=== PATIENT | female | born 2000 | race Caucasian/White ===

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

== ENCOUNTER 2022-12-23 22:53 | Emergency (ER) | payer OTHER, SELFPAY ==
[2022-12-23 23:01] VITALS: BP 132/92; PULSE 109; RESP 18; TEMP -17.7; TEMP 0; O2SAT 98; BMI 23.8
--- NOTE | 2022-12-23 23:12 | ED.ALLEREA ---
HPI - Allergic Reaction General Chief complaint: Allergic Reaction Stated complaint: Allergic reaction Time Seen by Provider: 12/23/22 23:05 Source: patient Mode of arrival: ambulatory Limitations: no limitations History of Present Illness HPI narrative: Patient comes to the emergency room complaining of an allergic reaction to seafood. Patient states she has known allergy to seafood. Unclear why patient consumed a seafood boil 3 hours ago. Approximately an hour after eating seafood, patient started feeling that her throat was itchy, closing up, her lips started swelling up. Patient took 2 tablets of Benadryl hoping that the reaction would stop. However, the Benadryl did not work. Patient now complaining that her lips are getting bigger and feels that her throat is more tight than before Related Data Allergies Allergy/AdvReac Type Severity Reaction Status Date / Time peanut Allergy Anaphylaxis Verified 12/23/22 23:00 seafood Allergy Angioedema Verified 12/23/22 23:00 Review of Systems Review of Systems: Constitutional : No Weight loss, No Fever, No Chills, No Night Sweats, No Fatigue, No Malaise ENT/Mouth : No Hearing loss, No Ear Pain, No Nasal Congestion, No Sinus Pain, complaining of upper and lower lip swelling, complaining of sensation that her throat is closing Cardiovascular : No Chest Pain, No SOB, No Dyspnea on Exertion, No Orthopnea, No Edema, No Palpitations Respiratory : No Cough, No Sputum, No Wheezing, No Smoke Exposure, No Dyspnea Gastrointestinal : No Nausea, No Vomiting, No Diarrhea, No Constipation, No abdominal Pain, No Hematochezia, No Melena Genitourinary : no irregular bleeding, No Dysuria, No Urinary Frequency, No Hematuria, No Urinary Incontinence, No Urgency, No Flank Pain, No Urinary Flow Changes, No Hesitancy Musculoskeletal : No joint pain, No Myalgias, No Joint Swelling Skin : No Skin Lesions, No rash Neuro : No Weakness, No Numbness, No Paresthesias, No Loss of Consciousness, No Dizziness, No Headache Psych : No Anxiety/Panic, No Depression, No SI/HI/AH/VH, No Social Issues, Heme/Lymph: No Bruising, No Bleeding,No Lymphadenopathy Endocrine : No Polyuria, No Polydipsia, No Temperature Intolerance [facility] Social History Social History Alcohol intake: current Alcohol intake frequency: holidays/special occasions only Alcohol type: hard liquor Smoked in Last 30 Days: No Use of substances other than those prescribed or required for medical reasons: No Advance Directives: No Physical Exam ED Vital Signs: Vital Signs - 24 hr 12/23/22 23:01 12/23/22 23:15 12/24/22 02:44 Temperature 0 F L 98.0 F Pulse Rate 109 H 108 H 78 Respiratory Rate 18 16 Blood Pressure 132/92 H 132/92 H 118/65 Pulse Oximetry 98 98 Oxygen Delivery Method Room Air Room Air BMI result Body Mass Index 23.8 Const Other: Appearance: Alert. Oriented X3. No acute distress. Eyes: Pupils equal, round and reactive to light. ENT: Uvula and tongue within normal limits, upper and lower lips swollen, hoarse voice Neck: Normal inspection. Neck supple. No lymph nodes noted. No crepitus CVS: Normal heart rate and rhythm. Pulses normal. Normal S1 and S2 Respiratory: No respiratory distress. Breath sounds normal. No Wheezing. No rales Abdomen: Soft and nontender. No rigidity. No distention. Skin: Skin warm and dry. Normal skin color. Normal skin turgor. Extremities: No lower extremity edema. No Lacerations. No Rash Neuro: Oriented X 3. No motor deficit. No sensory deficit. Moving all extremities. No slurred speech. CN 2 through 12 grossly intact Psych: calm, cooperative, normal affect Course Course Course Narrative: -patient was giving IM epinephrine, IV Solu-Medrol, Pepcid and Benadryl and IV fluids. Medications Administered Discontinued Medications Generic Name Dose Route Start Last Admin Trade Name Ivanq PRN Reason Stop Dose Admin Diphenhydramine HCl 50 mg 12/23/22 23:11 12/23/22 23:31 Diphenhydramine Hcl 50 Mg/Ml Vial IVPUSH 12/23/22 23:12 50 mg ONCE ONE Administration Diphenhydramine HCl 25 mg 12/24/22 02:27 12/24/22 02:38 Diphenhydramine Hcl 50 Mg/Ml Vial IVPUSH 12/24/22 02:28 25 mg ONCE ONE Administration Epinephrine 0.3 mg 12/23/22 23:11 12/23/22 23:15 Epinephrine 1 Mg/Ml Vial IM 12/23/22 23:12 0.3 mg STAT STA Administration Famotidine 20 mg 12/23/22 23:11 12/23/22 23:31 Famotidine/Pf 20 Mg/2 Ml Vial IVPUSH 12/23/22 23:12 20 mg ONCE ONE Administration Famotidine 20 mg 12/24/22 02:27 12/24/22 02:37 Famotidine/Pf 20 Mg/2 Ml Vial IVPUSH 12/24/22 02:28 20 mg ONCE ONE Administration Methylprednisolone Sodium Succinate 125 mg 12/23/22 23:11 12/23/22 23:31 Methylprednisolone Sod Succ 125 Mg/2 Ml Vial IVPUSH 12/23/22 23:12 125 mg ONCE ONE Administration Methylprednisolone Sodium Succinate 125 mg 12/24/22 02:27 12/24/22 02:38 Methylprednisolone Sod Succ 125 Mg/2 Ml Vial IVPUSH 12/24/22 02:28 125 mg ONCE ONE Administration Medical Decision Making Medical Decision Making MDM Narrative: -swelling in the lips decreased significantly, patient asymptomatic. -on physical exam prior to discharge, no wheezing, no angioedema present. Patient feels back to baseline -patient states that she has epinephrine pens at home and does not require prescription Differential Diagnosis Differential Diagnoses: The differential diagnosis associated with the presentation includes (Allergic reaction, familial angioedema) Critical Care Time Critical Care Time Critical Care Time: Yes Total Critical Care Time: 60 Attestation: I have personally provided critical care time. Time includes review of lab data, radiology results, discussion with consultants, and monitoring for potential decompensation. Intervention performed as documented. Discharge Plan Discharge Clinical Impression: Angioedema Patient Disposition: Home, Self-Care Instructions: Angioedema (ED) Additional Instructions: Please follow-up with your primary care physician tomorrow. If you have any worsening or new symptoms, please return to the emergency room or call 911
[2022-12-23 23:15] VITALS: BP 132/92; PULSE 108
[2022-12-23] MEDS: EPINEPHrine 1 MG/ML VIAL 0.3 MG IM (23:15)
--- NOTE | 2022-12-23 23:17 | PC.NURSE ---
sanders to bedside for primary eval while RN finishing up triage. Pt medicated per MD orders with IM epi. fiber technician provided Senia RN report on the patient. pt remains awake, alert, skin pwd, swelling noted to her eyelids and lips without visualized airway involvement. Pt has call floyd in reach and remains connected to monitor for continued obs.
[2022-12-23] MEDS: diphenhydrAMINE HCL 50 MG/ML VIAL IVPUSH (23:31)
[2022-12-23] MEDS: Famotidine/PF 20 MG/2 ML VIAL IVPUSH (23:31)
[2022-12-23] MEDS: methylPREDNISolone Sod Succ 125 MG/2 ML VIAL IVPUSH (23:31)
--- NOTE | 2022-12-23 23:36 | PC.NURSE ---
Patient is alert and oriented x3, VSS. Patient medicated per MAR. Patient continues to complain of mild difficulty swallowing, lip edema noted, no rash, no s/s of respiratory distress noted. Call floyd within patient's reach, patient's boyfriend at bedside.
[2022-12-24] MEDS: Famotidine/PF 20 MG/2 ML VIAL IVPUSH (02:37)
[2022-12-24] MEDS: diphenhydrAMINE HCL 50 MG/ML VIAL 25 MG IVPUSH (02:38)
[2022-12-24] MEDS: methylPREDNISolone Sod Succ 125 MG/2 ML VIAL IVPUSH (02:38)
--- NOTE | 2022-12-24 02:41 | PC.NURSE ---
Patient medicated per DEC. Patient reports achy discomfort in her throat resolved, edema in upper and lower lip continues to improve and almost completely resolved. VSS.
[2022-12-24 02:44] VITALS: BP 118/65; PULSE 78; RESP 16; TEMP 36.7; O2SAT 98
== END 2022-12-24 03:13 | disposition home or self-care (01) ==
PROVIDERS: Emergency Provider Emergency Medicine; PCP Pediatrics
DX: T78.1XXA Other adverse food reactions, not elsewhere classified, initial encounter (principal); T78.3XXA Angioneurotic edema, initial encounter; X58.XXXA Exposure to other specified factors, initial encounter
CPT/HCPCS: 96372; 96374; 96375; 96376; 99284; J0171; J1200; J2930

== ENCOUNTER 2023-06-02 20:34 | Emergency (ER) | payer OTHER, SELFPAY ==
--- NOTE | ~2023-06-02 | US_ITS ---
EXAMINATION: ULTRASOUND PELVIC, COMPLETE CLINICAL INFORMATION: . Pain. COMPARISON: None. TECHNIQUE: Transvaginal: Used to better visualize pelvic structures Transabdominal: Not adequate for visualization Spectral Doppler and color Doppler exam was utilized. LMP: 04/23/2023 gestational age by LMP is 5 weeks 5 days. FINDINGS: UTERUS: Single intrauterine gestational sac. There is a yolk sac and pole present. heart rate 116 bpm. [place]-rump length 0.25 cm. Gestational age is 5 weeks 6 days. ADELE 01/27/2024 ADNEXA: Ovarian vascularity:Doppler demonstrates both arterial and venous vascular flow in the right and left ovary. No evidence of ovarian torsion. Right Ovary: Corpus luteum cyst in the right ovary measuring 2.1 cm. The right ovary overall measures 5.1 x 2.4 x 2.5 cm. Left Ovary: Unremarkable. Left ovary measures 2.8 x 2.4 x 2.8 cm. Cul-de-sac: No Fluid US/US OB pelvic and transvaginal IMPRESSION: Single intrauterine gestation. Estimated gestational age by this exam is 5 weeks 6 days. ADELE 01/27/2024.
[2023-06-02 20:48] VITALS: BP 134/84; PULSE 94; RESP 18; TEMP 37.8; O2SAT 100; BMI 25.2
--- NOTE | 2023-06-02 20:49 | ED_ITS ---
HPI - Nausea/Vomiting/Diarrhea General Chief complaint: Abdominal Pain Stated complaint: abd pain/n/v/hot flashes Time Seen by Provider: 06/02/23 22:18 Source: patient Mode of arrival: ambulatory Limitations: no limitations History of Present Illness HPI Narrative: 22 yo female LMP 04/23 states it was normal for 4 days diffuse abdominal pain with n/v for 3 days no fevers no diarrhea - no urinary symptoms, new discharge or bleeding. The patient did not take a test. She has never been before. MD elicited complaint: nausea, vomiting and abdominal pain Onset (ago): day(s) (4) Description of vomiting: watery Associated nausea: Yes Associated abdominal pain: Yes Location of pain: diffuse Radiation: diffuse Pain consistency: intermittent Severity: moderate Quality: aching Exacerbating factors: eating Relieving factors: none Context: other (late on menses) Associated symptoms: loss of appetite, malaise and nausea/vomiting Related Data Previous Rx's Medication Instructions Recorded metoclopramide HCl 10 mg tablet 10 mg PO Q6H PRN nausea and 06/03/23 (Reglan) vomiting #20 tabs Allergies Allergy/AdvReac Type Severity Reaction Status Date / Time peanut Allergy Anaphylaxis Verified 06/02/23 20:53 seafood Allergy Angioedema Verified 06/02/23 20:53 Review of Systems Review of Systems: Constitutional : No Weight loss, No Fever, No Chills ENT/Mouth : No sore throat, No Rhinorrhea Eyes: No Swelling, No Redness Cardiovascular : No Chest Pain, No SOB, No Edema Respiratory : No Cough, No Sputum, No Wheezing Gastrointestinal : Positive Nausea, Positive Vomiting, no Diarrhea, positive abdominal Pain, No Hematochezia, No Melena Genitourinary : No Dysuria, No Urinary Frequency, No Hematuria, No Urgency Musculoskeletal : No joint pain, No Myalgias, No Joint Swelling Skin : No Skin Lesions, No rash Neuro : No Weakness, No Numbness, No Dizziness, No Headache Psych : No Anxiety/Panic, No Depression All other systems reviewed and are negative. Gastrointestinal: Gastrointestinal: Reports nausea PMFSH Past Medical History Attestation statement: The following information was validated with the patient. Medical History No pertinent past medical history Surgical History Hx of appendectomy Social History Social History (Updated 06/02/23 @ 23:19 by Leydi Anderson DO) Alcohol intake: current Alcohol intake frequency: holidays/special occasions only Alcohol type: hard liquor Patient Tobacco Use Status: Never used Tobacco Advance Directives: No Advance Directives Information Provided: No Physical Exam Vital Signs: Vital Signs: Last Vital Signs Temp 98.6 F 06/03/23 01:51 Pulse 92 06/03/23 01:51 Resp 16 06/03/23 01:51 BP 115/68 06/03/23 01:51 Pulse Ox 98 06/03/23 01:51 O2 Del Method Room Air 06/03/23 01:51 BMI result Body Mass Index 25.2 Appearance: Alert. Oriented X3. No acute distress. Eyes: Pupils equal, round and reactive to light. ENT: Pharynx normal. Neck: Normal inspection. Neck supple. CVS: Normal heart rate and rhythm. Pulses normal. Respiratory: No respiratory distress. Breath sounds normal. Abdomen: Soft and mild lower abdominal ttp no rebound Skin: Skin warm and dry. Normal skin color. Normal skin turgor. Extremities: No lower extremity edema. No calf ttp Neuro: Oriented X 3. No motor deficit. No sensory deficit. Course Course Course Narrative: This is an RME: Additional HPI, ROS, PE not included below will be deferred to primary provider. This is a 34-female presenting to the ER with complaints of abdominal pain, nausea, vomiting, and hot flashes. Last menstrual cycle was April 23, reports that she could be . Unable to tolerate PO. Vital signs stable. Abdomen is soft. Plan: Labs, UA, upreg Reevaluation(s) Reevaluation #1: signed out pending UA Medications Administered Discontinued Medications Generic Name Dose Route Start Last Admin Trade Name Freq PRN Reason Stop Dose Admin Diphenhydramine HCl 25 mg 06/03/23 01:18 06/03/23 01:46 Diphenhydramine Hcl 50 Mg/Ml Vial IVPUSH 06/03/23 01:19 25 mg ONCE ONE Administration Sodium Chloride 1,000 mls @ 999 mls/hr 06/02/23 23:15 06/03/23 00:57 Ns IV 06/03/23 00:15 999 mls/hr .Q1H1M KVNG Administration Metoclopramide HCl 10 mg 06/03/23 01:18 06/03/23 01:46 Metoclopramide Hcl 10 Mg/2 Ml Vial IVPUSH 06/03/23 01:19 10 mg ONCE ONE Administration Ondansetron HCl 4 mg 06/02/23 23:07 06/03/23 00:56 Ondansetron Hcl 4 Mg/2 Ml Vial IVPUSH 06/02/23 23:08 4 mg ONCE ONE Administration Medical Decision Making Medical Decision Making [facility] Narrative: 22 yo female G1 LMP 04/23 here with c/o abdominal pain and n/v for 4 days unaware she was until this visit at this time will need basic labs, quant she has no bleeding or new discharge she will be given IVF zofran and US to assess for ectopic I have also ordered UA to assess for UTI. She has no RUQ pain to suggest cholecystitis she is also s/p appendectomy int he past. Differential Diagnosis Differential Diagnoses: The differential diagnosis associated with the presentation includes UTI, dehydration, ectopic, ovarian cyst, round ligament pain Admission/Observation Consideration of admission/observation: Escalation of care including admission/observation considered US normal can tolerate PO Lab Data [facility] Lab Attestation statement: I reviewed the patient's lab results. 06/02/23 21:10 06/02/23 21:10 Labs: Lab Results 06/02/23 06/02/23 06/03/23 Range/Units 21:10 21:10 01:52 WBC 5.1 (4.8-10.8) X10*3/uL RBC 4.10 L (4.20-5.50) X10*6/uL Hgb 12.7 (12.0-16.0) g/dl Hct 37.1 (37.0-47.0) % MCV 90.5 (80.0-98.0) fL MCH 31.0 (27.0-33.0) pg MCHC 34.2 (31.0-35.0) g/dl RDW 12.7 (11.0-16.0) % Plt Count 323 (160-400) X10*3/uL MPV 9.9 (9.4-12.3) fL Immature Gran % (Auto) 0.4 (0.0-0.4) % Neut % (Auto) 61.2 (45-73) % Lymph % (Auto) 27.3 (20-40) % [place] % (Auto) 8.5 (2-11) % Eos % (Auto) 1.8 (0-4) % Baso % (Auto) 0.8 (0-2) % Lymph # (Auto) 1.4 (1.2-4.9) X10*3/uL [place] # (Auto) 0.4 (0.1-1.2) X10*3/uL Eos # (Auto) 0.1 (0.0-0.4) X10*3/uL Baso # (Auto) 0.0 (0.0-0.2) X10*3/uL Abs Immat Gran (auto) 0.02 (0.00-0.03) X10*3/uL Absolute Neuts (auto) 3.1 (2.0-8.3) x10*3/uL Absolute Nucleated RBC 0.000 (0.0-0.012) X10*3/uL Nucleated RBC % (auto) 0.0 (0.0-0.2) /100WBC Sodium 136 (135-145) mmol/L Potassium 4.0 (3.3-5.1) mmol/L Chloride 103 (96-108) mmol/L Carbon Dioxide 24 (22-29) mmol/L Anion Gap 13 (12-20) BUN 8 L (9-16) mg/dL Creatinine 0.64 (0.5-1.4) mg/dL Estim Creat Clear Calc 121.7 Estimated GFR > 60 Random Glucose 83 (60-115) mg/dL Calcium 9.6 (8.4-10.2) mg/dL Magnesium 1.8 (1.6-2.6) mg/dL Total Bilirubin 0.7 (0.0-1.0) mg/dL Direct Bilirubin 0.2 (0.0-0.5) mg/dL AST 14 (5-31) U/L ALT 6 (0-31) U/L Alkaline Phosphatase 68 (39-117) U/L Total Protein 7.5 (6.5-8.0) g/dL Albumin 4.3 (3.5-5.0) g/dL Lipase 13 (8-78) U/L Beta HCG, Quant 12802 mIU/mL Urine Color Yellow Urine Appearance Clear Urine pH 6.5 (5.0-9.0) Ur Specific [place] 1.025 (1.005-1.025) Urine Protein Negative (Neg-Trace) mg/dL Urine Glucose (UA) Negative (Negative) mg/dL Urine Ketones >=160 (Negative) mg/dL Urine Blood Negative (Negative) Urine Nitrite Negative (Negative) Ur Leukocyte Esterase Negative (Negative) Urine Test (NEGATIVE) 06/03/23 Range/Units 01:52 WBC (4.8-10.8) X10*3/uL RBC (4.20-5.50) X10*6/uL Hgb (12.0-16.0) g/dl Hct (37.0-47.0) % MCV (80.0-98.0) fL MCH (27.0-33.0) pg MCHC (31.0-35.0) g/dl RDW (11.0-16.0) % Plt Count (160-400) X10*3/uL MPV (9.4-12.3) fL Immature Gran % (Auto) (0.0-0.4) % Neut % (Auto) (45-73) % Lymph % (Auto) (20-40) % [place] % (Auto) (2-11) % Eos % (Auto) (0-4) % Baso % (Auto) (0-2) % Lymph # (Auto) (1.2-4.9) X10*3/uL [place] # (Auto) (0.1-1.2) X10*3/uL Eos # (Auto) (0.0-0.4) X10*3/uL Baso # (Auto) (0.0-0.2) X10*3/uL Abs Immat Gran (auto) (0.00-0.03) X10*3/uL Absolute Neuts (auto) (2.0-8.3) x10*3/uL Absolute Nucleated RBC (0.0-0.012) X10*3/uL Nucleated RBC % (auto) (0.0-0.2) /100WBC Sodium (135-145) mmol/L Potassium (3.3-5.1) mmol/L Chloride (96-108) mmol/L Carbon Dioxide (22-29) mmol/L Anion Gap (12-20) BUN (9-16) mg/dL Creatinine (0.5-1.4) mg/dL Estim Creat Clear Calc Estimated GFR Random Glucose (60-115) mg/dL Calcium (8.4-10.2) mg/dL Magnesium (1.6-2.6) mg/dL Total Bilirubin (0.0-1.0) mg/dL Direct Bilirubin (0.0-0.5) mg/dL AST (5-31) U/L ALT (0-31) U/L Alkaline Phosphatase (39-117) U/L Total Protein (6.5-8.0) g/dL Albumin (3.5-5.0) g/dL Lipase (8-78) U/L Beta HCG, Quant mIU/mL Urine Color Urine Appearance Urine pH (5.0-9.0) Ur Specific [place] (1.005-1.025) Urine Protein (Neg-Trace) mg/dL Urine Glucose (UA) (Negative) mg/dL Urine Ketones (Negative) mg/dL Urine Blood (Negative) Urine Nitrite (Negative) Ur Leukocyte Esterase (Negative) Urine Test POSITIVE H (NEGATIVE) Independent Interpretation I performed an independent interpretation of an: Ultrasound (no ectopic) Radiology Impression Discussion of test interpretation with radiology: I have reviewed the radiologist's reading. External Record Review External record reviewed: Inpatient record Prescription Management I considered prescription management with: Other (reglan) Discharge Plan Discharge Clinical Impression: Nausea & vomiting Qualifiers: Vomiting type: unspecified Qualified Code(s): R11.2 - Nausea with vomiting, unspecified Qualifiers: Weeks of gestation: less than 8 weeks Qualified Code(s): Z3A.01 - Less than 8 weeks gestation of Patient Disposition: Home, Self-Care Instructions: (ED), Acute Nausea and Vomiting (ED) Additional Instructions: return for worsening pain, bleeding, fevers, inability to eat or drink or any other concerns. you will need to get an OBGYN if you choose to do so. US/US OB pelvic and transvaginal IMPRESSION: Single intrauterine gestation. Estimated gestational age by this exam is 5 weeks 6 days. ADELE 01/27/2024. Prescriptions: New metoclopramide HCl [Reglan] 10 mg tablet 10 mg PO Q6H PRN (Reason: nausea and vomiting) Qty: 20 0RF
[2023-06-02 21:14] LABS: MANUAL DIFF FLAG NO
[2023-06-02 21:17] LABS: Basophils Percent Auto 0.8 % (0-2); Eosinophils Absolute Auto 0.1 X10*3/uL (0.0-0.4); Eosinophils Percent Auto 1.8 % (0-4); Hematocrit 37.1 % (37.0-47.0); Hemoglobin 12.7 g/dl (12.0-16.0); Imm Gran Abs Auto 0.02 X10*3/uL (0.00-0.03); Imm Gran Pct Auto 0.4 % (0.0-0.4); Lymphocytes Absolute Auto 1.4 X10*3/uL (1.2-4.9); Lymphocytes Percent Auto 27.3 % (20-40); Mean Corpuscular HGB Conc 34.2 g/dl (31.0-35.0); Mean Corpuscular Volume 90.5 fL (80.0-98.0); Mean Platelet Volume 9.9 fL (9.4-12.3); Monocytes Absolute Auto 0.4 X10*3/uL (0.1-1.2); Monocytes Percent Auto 8.5 % (2-11); Neutrophils Absolute Auto 3.1 x10*3/uL (2.0-8.3); Neutrophils Percent Auto 61.2 % (45-73); Platelet Count 323 X10*3/uL (160-400); Red Cell Distribution Width 12.7 % (11.0-16.0); White Blood Count 5.1 X10*3/uL (4.8-10.8)
--- NOTE | 2023-06-02 21:20 | MHC.EDTECH ---
pt not able to give urine sample at this time .
[2023-06-02 21:56] LABS: Alanine Aminotransferase 6 U/L (0-31); Albumin Level 4.3 g/dL (3.5-5.0); Alkaline Phosphatase 68 U/L (39-117); Anion Gap 13 (12-20); Aspartate Amino Transferase 14 U/L (5-31); Bilirubin Direct 0.2 mg/dL (0.0-0.5); Bilirubin Total 0.7 mg/dL (0.0-1.0); Blood Urea Nitrogen 8 mg/dL (9-16); Calcium 9.6 mg/dL (8.4-10.2); Carbon Dioxide 24 mmol/L (22-29); Chloride 103 mmol/L (96-108); Creatinine Clr Calc Pharmacy 121.7; Estimated Glomerular Filt Rate > 60; Glucose Random 83 mg/dL (60-115); Lipase 13 U/L (8-78); Magnesium 1.8 mg/dL (1.6-2.6); Sodium 136 mmol/L (135-145); Total Protein 7.5 g/dL (6.5-8.0)
[2023-06-02 22:16] VITALS: BP 124/77; PULSE 89; RESP 18; TEMP 37; O2SAT 98
[2023-06-02 22:19] LABS: HCG Quantitative 29574 mIU/mL
[2023-06-03 00:09] VITALS: BP 115/69; PULSE 87; RESP 16; TEMP 36.9; O2SAT 97
[2023-06-03] MEDS: ondansetron HCL 4 MG/2 ML VIAL IVPUSH (00:56)
[2023-06-03] MEDS: 0.9 % Sodium Chloride 1,000 ML 999 ML IV ×2 (00:57→03:00)
[2023-06-03] MEDS: diphenhydrAMINE HCL 50 MG/ML VIAL 25 MG IVPUSH (01:46)
[2023-06-03] MEDS: Metoclopramide HCl 10 MG/2 ML VIAL IVPUSH (01:46)
[2023-06-03 01:51] VITALS: BP 115/68; PULSE 92; RESP 16; TEMP 37; O2SAT 98
[2023-06-03 02:02] LABS: Appearance Urine Clear; Color Urine Yellow; Glucose Urine UA Negative (Negative); Leukocyte Esterase Urine Negative (Negative); Nitrite Urine Negative (Negative); PH 6.5 (5.0-9.0); Specific Gravity - Urine 1.025 (1.005-1.025); Urine Blood Negative (Negative); Urine Ketones >=160 mg/dL (Negative); Urine Protein Negative (Neg-Trace)
[2023-06-03 02:04] LABS: UPreg QC Valid YES; Urine Pregnancy POSITIVE (NEGATIVE)
== END 2023-06-03 04:13 | disposition home or self-care (01) ==
PROVIDERS: Physician Assistant Medical; Emergency Provider Emergency Medicine; PCP Pediatrics
DX: O21.9 Vomiting of pregnancy, unspecified (principal); Z3A.01 Less than 8 weeks gestation of pregnancy
CPT/HCPCS: 36415; 76801; 76817; 80048; 80076; 81003; 81025; 83690; 83735; 84702; 85025; 96374; 96375; 99284; J1200; J2405; J2765

== ENCOUNTER 2023-12-02 08:48 | Outpatient (AMB) | payer OTHER, SELFPAY ==
--- NOTE | 2023-12-02 09:48 | AM.OFFWIN_ITS ---
Intake Vital Signs 12/02/23 09:49 Weight 132 lb BP 110/70 Blood Pressure Location Rt brachial Position Sitting Pulse 100 Pulse Source Pulse Oximeter Temp 98.9 F Temp Source Oral Pulse Oximetry (%) 97 Oxygen Delivery Method Room Air Intake Visit Reasons: [employer] Diarrhea, vomiting Intake Note: Patient here for vomiting,diarrhea,headaches and weakness that has been present since Wednesday Patient Tobacco Use Status: Never used Tobacco Allergies peanut Allergy (Verified 12/02/23 09:50) Anaphylaxis seafood Allergy (Verified 12/02/23 09:50) Angioedema Do you need a note to return to daycare/school/sports/work: Yes HPI HPI Comments History of Present Illness Details 23 y/o female who presents to walk in [facility] with c/o Diarrhea, vomiting, headaches since Wednesday. Denies fevers, or chills. Pt ate at a fast food restaurant prior to symptoms. PFSH Medical History No pertinent past medical history Surgical History Hx of appendectomy Social History (Updated 06/02/23 @ 23:19 by Leydi Anderson DO) Alcohol intake: never Patient Tobacco Use Status: Never used Tobacco Review of Systems Const All systems reviewed & are unremarkable except as noted in HPI and below Physical Exam Vital Signs: Last Vital Signs Temp 98.9 F 12/02/23 09:49 Pulse 100 12/02/23 09:49 BP 110/70 12/02/23 09:49 Pulse Ox 97 12/02/23 09:49 Oxygen Delivery Method Room Air 12/02/23 09:49 Const General: cooperative, no acute distress and ill appearing Orientation/consciousness: patient oriented x3 HEENT Head: Yes normocephalic Ears: external ears normal and TM's normal bilaterally General nose exam: Normal nasal mucous membranes and turbinates present and No nasal discharge present Face and sinus: Yes sinuses nontender Throat: Yes posterior oropharynx normal Resp Effort & Inspection: normal respiratory effort and able to speak in complete sentences Auscultation: clear to auscultation bilaterally, no crackles, no rales, no rhonchi and no wheezes Cardio Rate: regular rate Rhythm: regular rhythm GI Inspection: Yes normal to inspection and No distended Palpation (GI): Soft to palpation and No hepatosplenomegaly present Auscultation: normal bowel sounds Rectal Exam - Female: deferred Neuro General: patient oriented x3 Assessment & Plan Assessment & Plan (1) Gastritis: Code(s): K29.70 - Gastritis, unspecified, without bleeding Qualifiers: Chronicity: acute Gastritis bleeding: without bleeding Gastritis type: other gastritis Qualified Code(s): K29.00 - Acute gastritis without bleeding Plan: - BLAND diet - Avoid greasy foods - Hydrate well with Gingerale or Gatorade (2) Nausea and vomiting: Code(s): R11.2 - Nausea with vomiting, unspecified Qualifiers: Vomiting type: unspecified Qualified Code(s): R11.2 - Nausea with vomiting, unspecified Plan: - Zofran as directed. (3) Diarrhea: Code(s): R19.7 - Diarrhea, unspecified Qualifiers: Diarrhea type: unspecified type Qualified Code(s): R19.7 - Diarrhea, unspecified Plan: - - BLAND diet - Avoid greasy foods - Hydrate well with Gingerale or Gatorade Orders: Orders SARS-CoV2/FLU/RSV Today K29.70 - Gastritis, unspecified, without bleeding, R11.2 - Nausea with vomiting, unspecified Medications: New ondansetron 8 mg PO Q8H 30 tabs 0RF R11.2 - Nausea with vomiting, unspecified metoclopramide HCl (Reglan) 10 mg PO Q6H 60 tabs 0RF R11.2 - Nausea with vomiting, unspecified loperamide (Imodium A-D) administer after each loose stool until symptoms controlled; do not exceed 8 mg per 24 hrs 2 mg PO Q4H PRN 20 caps 0RF loose stool R19.7 - Diarrhea, unspecified Coding Level of Care Code Est Pt Level 3 (93140) Diagnoses Other acute gastritis without hemorrhage K29.00 Chronicity: acute Gastritis bleeding: without bleeding Gastritis type: other gastritis Nausea and vomiting, unspecified vomiting type R11.2 Vomiting type: unspecified Diarrhea, unspecified type R19.7 Diarrhea type: unspecified type Time Spent (min) 15
[2023-12-02 09:49] VITALS: BP 110/70; PULSE 100; TEMP 37.2; O2SAT 97
== END 2023-12-02 10:37 | disposition home or self-care (01) ==
PROVIDERS: PCP Pediatrics; Visit Provider Nurse Practitioner Family
DX: K29.00 Acute gastritis without bleeding (principal); R11.2 Nausea with vomiting, unspecified; R19.7 Diarrhea, unspecified
CPT/HCPCS: 99213

== ENCOUNTER 2023-12-02 10:08 | Outpatient (REF) | payer OTHER, SELFPAY ==
[2023-12-02 16:53] LABS: Influenza A PCR NEGATIVE (Negative); Influenza B PCR NEGATIVE (Negative); Resp Syncy Virus RNA Qual PCR NEGATIVE (Negative); SARS COV2 PCR INHOUSE NEGATIVE (Negative)
== END 2023-12-02 10:09 | disposition home or self-care (01) ==
LOC: HO.LAB 10:08
PROVIDERS: Visit Provider Nurse Practitioner Family
DX: K29.70 Gastritis, unspecified, without bleeding (principal); R11.2 Nausea with vomiting, unspecified
CPT/HCPCS: 0241U

== ENCOUNTER 2025-01-17 21:12 | Emergency (ER) | payer OTHER, SELFPAY ==
[2025-01-17 21:31] VITALS: BP 126/88; PULSE 96; O2SAT 100
[2025-01-17 21:33] VITALS: BP 126/85; PULSE 101; RESP 18; TEMP 37; O2SAT 98; BMI 25.4
[2025-01-17 22:52] VITALS: BP 128/90; PULSE 86; RESP 16; O2SAT 100
[2025-01-18] VITALS: BP 115/78; PULSE 93; RESP 18; TEMP 36.8; O2SAT 100
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
[2025-01-18] MEDS: Ibuprofen 600 MG TABLET PO (01:16)
[2025-01-18] MEDS: Cyclobenzaprine HCl 5 MG TABLET PO (01:16)
--- NOTE | 2025-01-18 01:18 | PC.NURSE ---
Pt a&ox4, no signs of distress. Pts family at bedside Plan of care ongoing.
[2025-01-18 01:26] LABS: MANUAL DIFF FLAG NO
[2025-01-18 01:27] LABS: Basophils Absolute Auto 0.1 X10*3/uL (0.0-0.2); Basophils Percent Auto 1.5 % (0-2); Eosinophils Absolute Auto 0.3 X10*3/uL (0.0-0.4); Eosinophils Percent Auto 4.9 % (0-4); Hematocrit 35.5 % (37.0-47.0); Hemoglobin 11.9 g/dl (12.0-16.0); Imm Gran Abs Auto 0.01 X10*3/uL (0.00-0.03); Imm Gran Pct Auto 0.2 % (0.0-0.4); Lymphocytes Percent Auto 36.8 % (20-40); Mean Corpuscular HGB Conc 33.5 g/dl (31.0-35.0); Mean Corpuscular Hemoglobin 31.2 pg (27.0-33.0); Mean Corpuscular Volume 92.9 fL (80.0-98.0); Mean Platelet Volume 10.4 fL (9.4-12.3); Monocytes Absolute Auto 0.4 X10*3/uL (0.1-1.2); Monocytes Percent Auto 7.9 % (2-11); Neutrophils Absolute Auto 2.7 x10*3/uL (2.0-8.3); Neutrophils Percent Auto 48.7 % (45-73); Platelet Count 311 X10*3/uL (160-400); Red Blood Count 3.82 X10*6/uL (4.20-5.50); Red Cell Distribution Width 13.7 % (11.0-16.0); White Blood Count 5.5 X10*3/uL (4.8-10.8)
[2025-01-18 01:41] LABS: Anion Gap 13 (12-20); Blood Urea Nitrogen 13 mg/dL (9-16); Calcium 9.2 mg/dL (8.4-10.2); Carbon Dioxide 24 mmol/L (22-29); Chloride 107 mmol/L (96-108); Creatinine Clr Calc Pharmacy 126.1; Estimated Glomerular Filt Rate > 60; Glucose Random 89 mg/dL (60-115); Sodium 140 mmol/L (135-145)
[2025-01-18 01:46] LABS: Prothrombin Time 11.2 SEC (10.9-12.4)
[2025-01-18 02:06] VITALS: BP 115/78; PULSE 93; RESP 18; TEMP 36.8; O2SAT 100
== END 2025-01-18 02:08 | disposition home or self-care (01) ==
PROVIDERS: Emergency Provider Emergency Medicine
DX: Z04.1 Encounter for examination and observation following transport accident (principal); M79.18 Myalgia, other site; M54.50 Low back pain, unspecified; R23.1 Pallor; Z79.899 Other long term (current) drug therapy
CPT/HCPCS: 36415; 80048; 85025; 85610; 99283; 99284